=== PATIENT | male | born 1950 | race Caucasian/White ===

== ENCOUNTER → 2019-06-13 12:58 | Outpatient (CLI) | payer MEDICARE, SELFPAY ==
--- NOTE | ~2019-06-13 | XR_ITS ---
EXAMINATION: XR lumbar spine 2-3V DATE: 06/13/2019 13:42 INDICATION: Low back pain. TECHNIQUE: 3 views of lumbar spine were obtained. COMPARISON: CT abdomen and pelvis 09/30/2013 FINDINGS: There is 3 degrees dextrocurvature of lumbar spine. There is 3 mm retrolisthesis of L3 on L 4. Vertebral body heights are normal. There is mildly decreased disc height at L1-L2, severely decrea sed disc height at L2-L3 and L3-L4, and moderately decreased disc height at L4-L5. There is multileve l facet joint osteoarthritis, severe bilaterally from L3-L4 through L5-S1. IMPRESSION: 1. Severe lumbar spondylosis. Reviewed, dictated and finalized at location A. 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
--- NOTE | ~2019-06-13 | XR_ITS ---
EXAMINATION: XR hip RT min 2V DATE: 06/13/2019 13:42 INDICATION: Right hip pain. TECHNIQUE: 2 views of right hip were obtained. COMPARISON: None. FINDINGS: Bone alignment is normal. No fracture. There is mild right hip osteoarthritis. IMPRESSION: 1. Mild right hip osteoarthritis. Reviewed, dictated and finalized at location A. 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
== END ==
PROVIDERS: PCP Family Medicine; Visit Provider Family Medicine
DX: M16.11 Unilateral primary osteoarthritis, right hip (principal); M47.816 Spondylosis without myelopathy or radiculopathy, lumbar region
CPT/HCPCS: 72100; 73502

== ENCOUNTER 2019-08-20 10:35 | Outpatient (CLI) | payer MEDICARE, SELFPAY ==
[2019-08-20 11:15] LABS: Hematocrit 39.2 % (42.0-52.0); Hemoglobin 13.3 g/dL (14.0-18.0); Mean Corpuscular HGB Conc 33.9 g/dl (32-36); Mean Corpuscular Hemoglobin 33.8 pg (26-34); Mean Corpuscular Volume 99.7 fl (80-100); Mean Platelet Volume 11.2 fl (7.4-10.4); Platelet Count Result 193 k/mm3 (150-375); Red Blood Count 3.93 M/mm3 (4.6-6.20); Red Cell Distribution Width 16.4 % (11.5-14.5); White Blood Count 8.6 K/mm3 (4.5-10.0)
[2019-08-20 11:38] LABS: Alanine Aminotransferase 85 U/L (4-50); Albumin Level 4.7 g/dL (3.5-5.1); Alkaline Phosphatase 98 U/L (38-126); Aspartate Amino Transferase 76 U/L (17-59); Bilirubin,Total 1.1 mg/dL (0.2-1.3); Blood Urea Nitrogen 14 mg/dL (9-20); Carbon Dioxide 30 mmol/L (22-30); Chloride 101 mmol/L (98-107); Cholesterol 222 mg/dL (0-200); Estimated Glomerular Filt Rate > 60; Glucose 86 mg/dL (75-110); HDL Direct 64 mg/dL; Sodium 137 mmol/L (137-145); Triglycerides 83 mg/dL (<150)
[2019-08-20 11:49] LABS: LDL Cholesterol Direct 129 mg/dL
[2019-08-20 12:27] LABS: Free T4 Free Thyroxine 0.65 ng/mL (0.78-2.19)
[2019-08-20 12:44] LABS: Folic Acid 16.3 ng/mL (2.76->20)
== END 2019-08-20 10:36 | disposition home or self-care (01) ==
LOC: ANHLAB 10:46
PROVIDERS: PCP Family Medicine; Visit Provider Family Medicine
DX: E03.9 Hypothyroidism, unspecified (principal); I10 Essential (primary) hypertension; E78.00 Pure hypercholesterolemia, unspecified; R53.83 Other fatigue
CPT/HCPCS: 36415; 80053; 80061; 82607; 82746; 84439; 84443; 85027

== ENCOUNTER 2020-08-07 11:31 | Outpatient (CLI) | payer MEDICARE, SELFPAY ==
--- NOTE | ~2020-08-07 | XR_ITS ---
EXAMINATION: XR chest 2V DATE: 08/07/2020 12:00 INDICATION: Contact with and suspected exposure to asbestos. TECHNIQUE: Frontal and lateral views of the chest were obtained. COMPARISON: Chest 2 views 03/06/2005 FINDINGS: There is mild atelectasis at left lung base. No pleural effusion or pneumothorax. The heart size is normal. There is mild chronic anterior wedging of multiple vertebral bodies. IMPRESSION: 1. Mild atelectasis at left lung base. Reviewed, dictated and finalized at location B.
[2020-08-07 11:51] LABS: Basophils Absolute Auto 0.1 K/mm3 (0.0-0.1); Eosinophils Absolute Auto 0.6 K/mm3 (0-0.3); Eosinophils Percent Auto 5.9 % (0-4.4); Hematocrit 47.2 % (42.0-52.0); Hemoglobin 15.9 g/dL (14.0-18.0); Immature Granulocyte Absolute 0.04 K/mm3 (0.00-0.031); Immature Granulocyte Percent A 0.4 % (0-0.5); Lymphocytes Absolute Auto 1.65 K/mm3 (0.9-3.2); Lymphocytes Percent Auto 15.6 % (18.3-44.2); Mean Corpuscular HGB Conc 33.7 g/dl (32-36); Mean Corpuscular Hemoglobin 33.1 pg (26-34); Mean Corpuscular Volume 98.3 fl (80-100); Mean Platelet Volume 12.2 fl (7.4-10.4); Monocytes Absolute Auto 0.8 K/mm3 (0.1-0.6); Monocytes Percent Auto 7.3 % (2.6-8.5); Neutrophils Absolute Auto 7.4 K/mm3 (1.3-6.7); Neutrophils Percent Auto 69.8 % (45.5-73.1); Platelet Count Result 183 k/mm3 (150-375); Red Cell Distribution Width 13.2 % (11.5-14.5); White Blood Count 10.6 K/mm3 (4.5-10.0)
[2020-08-07 12:02] LABS: Alanine Aminotransferase 23 U/L (4-50); Albumin Level 4.5 g/dL (3.5-5.1); Alkaline Phosphatase 62 U/L (38-126); Anion Gap 4 mmol/L (8-16); Aspartate Amino Transferase 41 U/L (17-59); Blood Urea Nitrogen 19 mg/dL (9-20); Calcium 9.4 mg/dL (8.4-10.2); Carbon Dioxide 29 mmol/L (22-30); Chloride 106 mmol/L (98-107); Cholesterol 233 mg/dL (0-200); Estimated Glomerular Filt Rate > 60; Glucose 94 mg/dL (75-110); HDL Direct 50 mg/dL; Potassium 4.3 mmol/L (3.4-5.0); Sodium 139 mmol/L (137-145); Triglycerides 127 mg/dL (<150)
[2020-08-07 12:12] LABS: LDL Cholesterol Direct 162 mg/dL
[2020-08-07 12:32] LABS: Prostate Specific Antigen 0.8 ng/mL (< OR = 4.0)
== END 2020-08-07 11:32 | disposition home or self-care (01) ==
PROVIDERS: PCP Internal Medicine; Visit Provider Nurse Practitioner
DX: E78.5 Hyperlipidemia, unspecified (principal); E03.9 Hypothyroidism, unspecified; Z86.2 Personal history of diseases of the blood and blood-forming organs and certain disorders involving the immune mechanism; Z12.5 Encounter for screening for malignant neoplasm of prostate; Z77.090 Contact with and (suspected) exposure to asbestos; R91.8 Other nonspecific abnormal finding of lung field
CPT/HCPCS: 36415; 71046; 80053; 80061; 84153; 84443; 85025; G0103

== ENCOUNTER → 2020-09-11 01:44 | Outpatient (CLI) | payer MEDICARE, SELFPAY ==
[2020-09-12 19:27] LABS: SARS-CoV-2 RNA PCR Negative
== END ==
PROVIDERS: PCP Internal Medicine; Visit Provider Internal Medicine Gastroenterology
DX: Z01.812 Encounter for preprocedural laboratory examination (principal); Z20.822 Contact with and (suspected) exposure to COVID-19
CPT/HCPCS: C9803; U0003; U0005

== ENCOUNTER 2020-09-14 01:51 | Day surgery (SDC) | payer MEDICARE, SELFPAY ==
[2020-09-04 13:34] VITALS: BMI 31.9
[2020-09-14 10:56] VITALS: BP 149/77; PULSE 72; RESP 18; TEMP 36.1; O2SAT 98
[2020-09-14 10:58] VITALS: BMI 31.0
[2020-09-14] MEDS: LACTATED RINGERS 1,000 ML 150 ML IV CONT (11:09)
--- NOTE | 2020-09-14 11:35 | WPDANESEPPF ---
Anes - Initial Pre Proc Eval Procedure: Operation Date: 09/14/20 12:15 Proposed Procedures p Screening Colonoscopy - Flaquito Wolff MD Date/Time: 09/14/20 11:35 Surgeon: Flaquito Wolff MD Pre Op Diagnosis: neoplasm screening Patient Data Age: 69 Gender: M Height: 5 ft 8 in Weight: 92.7 kg Last Vital Signs Temp 97 F L 09/14/20 10:56 Pulse 72 09/14/20 10:56 Resp 18 09/14/20 10:56 BP 149/77 H 09/14/20 10:56 Pulse Ox 98 09/14/20 10:56 Allergies Allergy/AdvReac Type Severity Reaction Status Date / Time tetanus immune globulin AdvReac Unknown Rash Verified 09/14/20 10:55 Home Medications Medication Instructions Recorded Confirmed Type levothyroxine 200 mcg tablet 200 mcg PO DAILY #90 tablet 08/27/20 09/14/20 Rx metoprolol tartrate 100 mg tablet 100 mg PO DAILY #90 tablet 08/27/20 09/04/20 Rx Patient hx anesthesia problems: none Family hx anesthesia problems: none PMFSH Past Medical History Medical History (Updated 07/05/20 @ 13:55 by Cl Stanford DO) Exposure to asbestos History of anemia Hypertension Insomnia Nephrolithiasis Osteoarthritis Social History Social History (Updated 07/05/20 @ 13:29 by Shelby Hollingsworth MA) Smoking packs per day: 0.5 Smoking cigarettes per day: 10.0 Years smoked: 1 Smoking pack-years: 0.50 Smoking status: Former smoker Tobacco type: cigarettes Alcohol intake: current Alcohol use details: pt drinks about 5 glasses of wine a week Substance use: current Substance use type: marijuana Living arrangements: with family Gender identity (if verbalized by the patient): Male Anes - Eval Final PreProcedure Day of Procedure 09/14/20 11:35 Patient weight: obese Heart: regular rate and rhythm Lungs: clear to auscultation Airway: Mallampati scale class III Neurological: alert and oriented Last oral intake: >/= 8 hours ASA classification: III Emergent: no Anesthetic plan: proceed Anesthesia type and monitoring: general GIVS and standard monitoring Informed Consent: The patient's anesthetic plan and its attendant risks and benefits were discussed with the patient/family/POA. Questions were solicited and answers provided to the satisfaction of the patient/family/POA.
--- NOTE | 2020-09-14 11:46 | PM.HPGS ---
History of Present Illness History of Present Illness Consent: Risks, benefits, and alternatives have been discussed and questions answered. Patient agrees to proceed with procedure. Chief complaint: neoplasm screening Narrative: Shay Estrada is a 69 year old male here for screening colonoscopy, last one 10 years ago Review of Systems Constitutional: Constitutional: Denies headache(s) and Denies weakness Eyes: Eyes: Denies blurry vision ENT: Reports Normal hearing present, Denies headache(s) and Denies neck pain Cardiovascular: Cardiovascular: Denies chest pain and Denies dyspnea Respiratory: Respiratory: Denies dyspnea Gastrointestinal: Gastrointestinal: Reports no additional gastrointestinal complaints Genitourinary: Genitourinary: Denies dysuria Musculoskeletal: Musculoskeletal: Denies neck pain Integumentary/Breasts: Skin/Breast: Denies dry skin Neurologic: Reports Normal hearing present, Denies headache(s) and Denies weakness Psychiatric: Psychiatric: Denies anxiety Endocrine: Endocrine: Denies change in body appearance Hematologic/Lymphatic: Hematologic/Lymphatic: Denies easy bleeding Allergic/Immunologic: Allergic/Immunologic: Denies urticaria PMFSH Past Medical History Medical History (Updated 07/05/20 @ 13:55 by Cl Stanford DO) Exposure to asbestos History of anemia Hypertension Insomnia Nephrolithiasis Osteoarthritis Social History Social History (Updated 07/05/20 @ 13:29 by Shelby Hollingsworth MA) Smoking packs per day: 0.5 Smoking cigarettes per day: 10.0 Years smoked: 1 Smoking pack-years: 0.50 Smoking status: Former smoker Tobacco type: cigarettes Alcohol intake: current Alcohol use details: pt drinks about 5 glasses of wine a week Substance use: current Substance use type: marijuana Living arrangements: with family Gender identity (if verbalized by the patient): Male Meds Home Medications and Allergies Home Medications Medication Instructions Recorded Confirmed Type levothyroxine 200 mcg tablet 200 mcg PO DAILY #90 tablet 08/27/20 09/14/20 Rx metoprolol tartrate 100 mg tablet 100 mg PO DAILY #90 tablet 08/27/20 09/04/20 Rx Allergies Allergy/AdvReac Type Severity Reaction Status Date / Time tetanus immune globulin AdvReac Unknown Rash Verified 09/14/20 10:55 Vital Signs Vital Signs - 24 hr 09/14/20 10:56 Temperature 97 F L Pulse Rate 72 Respiratory Rate 18 Blood Pressure 149/77 H Pulse Oximetry 98 Exam Const: General: comfortable and no acute distress HENMT: General nose exam: Normal nares present Eyes: General: appearance normal, both eyes and all related structures Neck: Neck: no JVD Resp: Auscultation: clear to auscultation bilaterally Cardio: Rate: regular rate Rhythm: regular rhythm GI: Inspection: non-distended GI Palp: Yes Soft to palpation Skin: General skin exam: normal color Neuro: General: gait normal Speech: normal speech Extrem: General: normal to inspection Psych: Mental Status: mental status grossly normal Assessment and Plan Assessment and plan (1) Screening for colon cancer: Code(s): Z12.11 - Encounter for screening for malignant neoplasm of colon Status: Acute Assessment and Plan: colonoscopy
[2020-09-14 12:07] VITALS: BP 94/55; PULSE 57; RESP 14; O2SAT 96
[2020-09-14 12:17] VITALS: BP 96/55; PULSE 56; RESP 22; O2SAT 96
[2020-09-14 12:27] VITALS: BP 138/80; PULSE 65; RESP 19; O2SAT 99
== END 2020-09-14 12:39 | disposition home or self-care (01) ==
PROVIDERS: PCP Internal Medicine; Visit Provider Internal Medicine Gastroenterology
PROC: 0DJD8ZZ Inspection of Lower Intestinal Tract, Via Natural or Artificial Opening Endoscopic (ICD-10-PCS; CPT 45378; principal; 2020-09-14 12:15)
DX: Z12.11 Encounter for screening for malignant neoplasm of colon (principal); K64.8 Other hemorrhoids; D12.2 Benign neoplasm of ascending colon; D12.3 Benign neoplasm of transverse colon; E03.9 Hypothyroidism, unspecified; I10 Essential (primary) hypertension; M19.90 Unspecified osteoarthritis, unspecified site; Z87.891 Personal history of nicotine dependence; F12.90 Cannabis use, unspecified, uncomplicated; E66.9 Obesity, unspecified; Z68.31 Body mass index [BMI] 31.0-31.9, adult
CPT/HCPCS: 45385; 88305; C9803; J2001; J2704; J7120; U0003; U0005

== ENCOUNTER 2020-12-06 11:01 | Outpatient (CLI) | payer MEDICARE, SELFPAY ==
[2020-12-06 11:21] LABS: Basophils Absolute Auto 0.1 K/mm3 (0.0-0.1); Eosinophils Absolute Auto 0.8 K/mm3 (0-0.3); Eosinophils Percent Auto 6.4 % (0-4.4); Hematocrit 49.2 % (42.0-52.0); Hemoglobin 16.5 g/dL (14.0-18.0); Immature Granulocyte Absolute 0.05 K/mm3 (0.00-0.031); Immature Granulocyte Percent A 0.4 % (0-0.5); Lymphocytes Absolute Auto 2.09 K/mm3 (0.9-3.2); Lymphocytes Percent Auto 16.8 % (18.3-44.2); Mean Corpuscular HGB Conc 33.5 g/dl (32-36); Mean Corpuscular Hemoglobin 31.5 pg (26-34); Mean Corpuscular Volume 94.1 fl (80-100); Mean Platelet Volume 11.5 fl (7.4-10.4); Monocytes Absolute Auto 1.1 K/mm3 (0.1-0.6); Monocytes Percent Auto 9.1 % (2.6-8.5); Neutrophils Absolute Auto 8.3 K/mm3 (1.3-6.7); Neutrophils Percent Auto 66.3 % (45.5-73.1); Platelet Count Result 210 k/mm3 (150-375); Red Blood Count 5.23 M/mm3 (4.6-6.20); White Blood Count 12.4 K/mm3 (4.5-10.0)
[2020-12-06 11:36] LABS: Alanine Aminotransferase 35 U/L (4-50); Albumin Level 4.5 g/dL (3.5-5.1); Alkaline Phosphatase 70 U/L (38-126); Anion Gap 6 mmol/L (8-16); Aspartate Amino Transferase 41 U/L (17-59); Bilirubin,Total 1.2 mg/dL (0.2-1.3); Blood Urea Nitrogen 12 mg/dL (9-20); Calcium 9.7 mg/dL (8.4-10.2); Carbon Dioxide 27 mmol/L (22-30); Chloride 106 mmol/L (98-107); Cholesterol 268 mg/dL (0-200); Estimated Glomerular Filt Rate > 60; Glucose 93 mg/dL (65-110); HDL Direct 45 mg/dL; Potassium 4.1 mmol/L (3.4-5.0); Sodium 139 mmol/L (137-145); Triglycerides 176 mg/dL (<150)
[2020-12-06 11:46] LABS: LDL Cholesterol Direct 154 mg/dL
== END 2020-12-06 11:02 | disposition home or self-care (01) ==
PROVIDERS: PCP Internal Medicine; Visit Provider Nurse Practitioner
DX: E78.5 Hyperlipidemia, unspecified (principal); E03.9 Hypothyroidism, unspecified; Z86.2 Personal history of diseases of the blood and blood-forming organs and certain disorders involving the immune mechanism
CPT/HCPCS: 36415; 80053; 80061; 84443; 85025